=== PATIENT | female | born 1970 | race Caucasian/White ===

== ENCOUNTER 2019-01-30 12:51 | Emergency (ER) | payer SELFPAY ==
[2019-01-30 12:53] VITALS: BP 157/99; PULSE 77; RESP 20; TEMP 36.7; O2SAT 100; BMI 21.2
--- NOTE | 2019-01-30 13:24 | EKG12_ITS ---
Test Reason : CP Blood Pressure : / mmHG Vent. Rate : 082 BPM Atrial Rate : 082 BPM P-R Int : 102 ms QRS Dur : 086 ms QT Int : 370 ms P-R-T Axes : -09 067 073 degrees QTc Int : 432 ms Sinus rhythm with short OK Minimal voltage criteria for LVH, may be normal variant Borderline ECG Confirmed by TREVER DAWN ([id number]), online content editor GURDEEP TANNER ([id number]) on 02/02/2019 4:49:21 PM Referred By: MARLENY Confirmed By:TREVER DAWN
[2019-01-30] MEDS: Morphine 4 MG/ML Syringe IV (13:42)
[2019-01-30] MEDS: Ondansetron 4 MG/2 ML Vial IV (13:45)
--- NOTE | 2019-01-30 13:46 | ED.VIS.GEN ---
History of Present Illness Chief Complaint: Fall Limited by: Coma Onset: Yesterday Context: Sudden Onset Timing: Continuous Quality: Pain LUQ and left flank status post fall Location: Fell at home down a flight of steps Current Severity: Moderate Maximum Severity: Severe Worsened by: breathing, movement and palpation Relieved by: Nothing Associated Symptoms: Nausea Narrative: Patient is a middle-aged woman who is a smoker 1 pack/day presents because of left upper quadrant pain left flank pain status post fall. She fell last evening at 2200. She then developed steps. She did not have loss conscious. Shot administered. Denies neck pain. Denies paresthesia, anesthesia motors. She reports difficulty breathing because of pain. She has not urinated since fall. She is on no anticoagulant. She has no other complaints. Prior similar symptoms: No Recent Illness/Hospitalization: No - Past Medical History (1) No significant past medical history Status: Acute Past Medical History - Allergies and Home Meds Allergies/Adverse Reactions: Allergies No Known Allergies Allergy (Verified 01/30/19 12:53) Past Medical History: None Lives: Alone Smoking Status: Heavy Smoker (>10/day) Alcohol: Rare Review of Systems General: Denies: Chills, Fever, Sweats Eyes: Denies: Visual changes - bilaterally, Diplopia ENT: Denies: Rhinorrhea, Sore throat Cardiovascular: Denies: Chest pain, Palpitations Respiratory: Denies: Dyspnea, Cough, Dyspnea on exertion Gastrointestinal: Reports: Abdominal pain - left upper quadrant, Nausea. Denies: Vomiting, Diarrhea, Melena, Hematochezia Genitourinary: Denies: Dysuria, Hematuria, Frequency Musculoskeletal: Reports: Back pain. Denies: Myalgias, Arthralgias, Neck pain, Swelling, Extremity Pain Skin: Denies: Rash, Wounds Neurological: Denies: Headache, Weakness, Numbness Endocrine: Denies: Polyuria, Polydipsia Hematologic: Denies: Easy bruising, Easy bleeding Physical Exam Vital Signs/Narrative: Vital Signs Temp Pulse Resp BP Pulse Ox 01/30/19 12:53 98.1 F 77 20 H 157/99 H 100 General: Well nourished, Well developed, Acute Distress Head: Normocephalic, Atraumatic Eyes: Perrl, EOMI, Pale conjunctiva, Scleral icterus, - ENT: Moist mucous membranes, No rhinorrhea, TM's clear, - Neck: Supple, Nontender, No lymphadenopathy, No JVD, - Cardiovascular: Regular rate, Regular rhythm, No murmurs, Normal S1, Normal S2 Respiratory: CTA bilaterally - No, Decreased Air Movement, Chest tenderness - Left side Abdomen: Soft, Nondistended, No masses, Tender, Guarding, - - Significant tenderness left upper quadrant. Spleen is not enlarged by percussion. Significant tenderness left flank.. Negative for: Hepatomegaly, Splenomegaly, Mass, Pulsatile mass Rectal: Deferred - He has Back: Normal Inspection, CVA tenderness - left. Negative for: Nontender, Spinal tenderness Extremities: Nontender - ., No edema Skin: Normal color, No rash. Negative for: Cyanosis, Jaundice Neurological: Alert, Oriented x3, Cranial nerves II-XII grossly intact, Normal Strength, Normal Sensation, Normal DTR - No clonus or Babinski sign, - - GCS 15 Psychological: Normal affect, Normal Mood Diagnostic/Tx/Re-eval Impressions Abdomen/Pelvis CT 01/30/19 14:00 IMPRESSION: Contained splenic laceration with fluid in the abdomen and pelvis as described. This may represent blood. N.B. : The above information has been verbally conveyed by Vikash Goncalves to Zaid Cardoza MD, on 01/30/2019 14:36:43 (ET). Electronically Signed: Vikash Goncalves, at 14:37 EDT , Service support , 01/30/19 14:00 Abdomen/Pelvis WITH Contrast [CT] Stat Laboratory Results 01/30/19 01/30/19 13:35 13:35 WBC 7.4 RBC 4.24 Hgb 12.0 Hct 36.3 L MCV 85.6 MCH 28.3 MCHC 33.1 RDW 14.2 RDW Differential 43.8 Plt Count 330 MPV 8.2 Immature Gran % (Auto) 0.100 Neut % (Auto) 78.9 H Lymph % (Auto) 14.8 L Frio % (Auto) 5.4 Eos % (Auto) 0.5 Baso % (Auto) 0.3 Absolute Neuts (auto) 5.8 Absolute Lymphs (auto) 1.10 Total Counted Not Reportable Sodium 137 Potassium 4.5 Chloride 103 Carbon Dioxide 30.0 Anion Gap 4 L BUN 20 H Creatinine 0.73 Estim Creat Clear Calc 93.16 Est GFR (MDRD) Af Amer 108 Est GFR (MDRD) Non-Af 89 BUN/Creatinine Ratio 27.3 H Glucose 126 H Calcium 8.7 - Rhythm Strip Rhythm Strip: Sinus Rhythm Rate: 75 Ectopy: None - Medical Decision Making With severe left upper quadrant pain and left flank pain and evidence of discomfort IV was established and she was medicated with morphine and Zofran. CT of the abdomen and pelvis was obtained with IV contrast to evaluate for splenic injury and renal injury. Also this will evaluate for lower rib cage fracture. Baseline blood work was obtained including test. Patient was informed that she has a significant injury to her spleen and will need transfer to trauma center. She chose [facility]. Will add PT/INR PTT to her blood work. [place] is contacting the [facility] transfer line for trauma transfer - Critical Care Time Critical care time (excluding procedures): 30-74 minutes, Discussing w/Patient &/or Family/Sql Consultant, Discussing w/Consultants, Arranging Admission or Transfer ED Disposition - Plan for ED Patient: Disposition: [facility] Diagnosis: Splenic rupture
--- NOTE | 2019-01-30 13:50 | ED.DCSUM_ITS ---
History of Present Illness Chief Complaint: Fall Limited by: Coma Onset: Yesterday Context: Sudden Onset Timing: Continuous Quality: Pain LUQ and left flank status post fall Location: Fell at home down a flight of steps Current Severity: Moderate Maximum Severity: Severe Worsened by: breathing, movement and palpation Relieved by: Nothing Associated Symptoms: Nausea Narrative: Patient is a middle-aged woman who is a smoker 1 pack/day presents because of left upper quadrant pain left flank pain status post fall. She fell last evening at 2200. She then developed steps. She did not have loss conscious. Shot administered. Denies neck pain. Denies paresthesia, anesthesia motors. She reports difficulty breathing because of pain. She has not urinated since fall. She is on no anticoagulant. She has no other complaints. Prior similar symptoms: No Recent Illness/Hospitalization: No - Past Medical History (1) No significant past medical history Status: Acute Past Medical History - Allergies and Home Meds Allergies/Adverse Reactions: Allergies No Known Allergies Allergy (Verified 01/30/19 12:53) Past Medical History: None Lives: Alone Smoking Status: Heavy Smoker (>10/day) Alcohol: Rare Review of Systems General: Denies: Chills, Fever, Sweats Eyes: Denies: Visual changes - bilaterally, Diplopia ENT: Denies: Rhinorrhea, Sore throat Cardiovascular: Denies: Chest pain, Palpitations Respiratory: Denies: Dyspnea, Cough, Dyspnea on exertion Gastrointestinal: Reports: Abdominal pain - left upper quadrant, Nausea. Denies: Vomiting, Diarrhea, Melena, Hematochezia Genitourinary: Denies: Dysuria, Hematuria, Frequency Musculoskeletal: Reports: Back pain. Denies: Myalgias, Arthralgias, Neck pain, Swelling, Extremity Pain Skin: Denies: Rash, Wounds Neurological: Denies: Headache, Weakness, Numbness Endocrine: Denies: Polyuria, Polydipsia Hematologic: Denies: Easy bruising, Easy bleeding Physical Exam Vital Signs/Narrative: Vital Signs Temp Pulse Resp BP Pulse Ox 01/30/19 12:53 98.1 F 77 20 H 157/99 H 100 General: Well nourished, Well developed, Acute Distress Head: Normocephalic, Atraumatic Eyes: Perrl, EOMI, Pale conjunctiva, Scleral icterus, - ENT: Moist mucous membranes, No rhinorrhea, TM's clear, - Neck: Supple, Nontender, No lymphadenopathy, No JVD, - Cardiovascular: Regular rate, Regular rhythm, No murmurs, Normal S1, Normal S2 Respiratory: CTA bilaterally - No, Decreased Air Movement, Chest tenderness - Left side Abdomen: Soft, Nondistended, No masses, Tender, Guarding, - - Significant tenderness left upper quadrant. Spleen is not enlarged by percussion. Significant tenderness left flank.. Negative for: Hepatomegaly, Splenomegaly, Mass, Pulsatile mass Rectal: Deferred - He has Back: Normal Inspection, CVA tenderness - left. Negative for: Nontender, Spinal tenderness Extremities: Nontender - ., No edema Skin: Normal color, No rash. Negative for: Cyanosis, Jaundice Neurological: Alert, Oriented x3, Cranial nerves II-XII grossly intact, Normal Strength, Normal Sensation, Normal DTR - No clonus or Babinski sign, - - GCS 15 Psychological: Normal affect, Normal Mood Diagnostic/Tx/Re-eval Impressions Abdomen/Pelvis CT 01/30/19 14:00 IMPRESSION: Contained splenic laceration with fluid in the abdomen and pelvis as described. This may represent blood. N.B. : The above information has been verbally conveyed by Vikash Goncalves to Zaid Cardoza MD, on 01/30/2019 14:36:43 (ET). Electronically Signed: Vikash Goncalves, at 14:37 EDT , Service support , 01/30/19 14:00 Abdomen/Pelvis WITH Contrast [CT] Stat Laboratory Results 01/30/19 01/30/19 13:35 13:35 WBC 7.4 RBC 4.24 Hgb 12.0 Hct 36.3 L MCV 85.6 MCH 28.3 MCHC 33.1 RDW 14.2 RDW Differential 43.8 Plt Count 330 MPV 8.2 Immature Gran % (Auto) 0.100 Neut % (Auto) 78.9 H Lymph % (Auto) 14.8 L [place] % (Auto) 5.4 Eos % (Auto) 0.5 Baso % (Auto) 0.3 Absolute Neuts (auto) 5.8 Absolute Lymphs (auto) 1.10 Total Counted Not Reportable Sodium 137 Potassium 4.5 Chloride 103 Carbon Dioxide 30.0 Anion Gap 4 L BUN 20 H Creatinine 0.73 Estim Creat Clear Calc 93.16 Est GFR (MDRD) Af Amer 108 Est GFR (MDRD) Non-Af 89 BUN/Creatinine Ratio 27.3 H Glucose 126 H Calcium 8.7 - Rhythm Strip Rhythm Strip: Sinus Rhythm Rate: 75 Ectopy: None - Medical Decision Making With severe left upper quadrant pain and left flank pain and evidence of discomfort IV was established and she was medicated with morphine and Zofran. CT of the abdomen and pelvis was obtained with IV contrast to evaluate for splenic injury and renal injury. Also this will evaluate for lower rib cage fracture. Baseline blood work was obtained including test. Patient was informed that she has a significant injury to her spleen and will need transfer to trauma center. She chose [facility]. Will add PT/INR PTT to her blood work. [place] is contacting the [facility] transfer line for trauma transfer - Critical Care Time Critical care time (excluding procedures): 30-74 minutes, Discussing w/Patient &/or Family/Wholesale Loan Processor, Discussing w/Consultants, Arranging Admission or Transfer ED Disposition - Plan for ED Patient: Disposition: [facility] Diagnosis: Splenic rupture
[2019-01-30 13:52] LABS: Absolute Neutrophil Count 5.8 X10^3/uL (2.0-7.7); Basophil# 0.02 X10^3/uL; Basophil% 0.3 % (0-1); Eosinophil# 0.04 X10^3/uL; Eosinophils% 0.5 % (0-5); Hematocrit 36.3 % (37-47); Lymphocyte % 14.8 % (19-41); Mean Corp Hgb Conc 33.1 g/gl (32-36); Mean Corpuscular Hgb 28.3 pg (27.0-32.0); Mean Corpuscular Volume 85.6 fL (81-99); Mean Platelet Vol. 8.2 fl (6.2-12.0); Monocyte% 5.4 % (0-10); Neutrophil # 5.84 X10^3/uL (2.7-7.7); Neutrophil % 78.9 % (47-70); Platelet Count 330 K/mm3 (150-450); RBC Distribution Width CV 14.2 % (11.6-14.6); RBC Distribution Width SD 43.8 fl (35.1-43.9); Red Blood Count 4.24 M/mm3 (4.2-5.4); White Blood Count 7.4 K/mm3 (4.4-11.0)
[2019-01-30 13:53] LABS: POSITIVE COUNT NO; POSITIVE DIFFERENTIAL NO; POSITIVE MORPHOLOGY NO
--- NOTE | 2019-01-30 14:00 | CT_ITS ---
STUDY: CT ABDOMEN AND PELVIS WITH CONTRAST REASON FOR EXAM: Female, 48 years old. Left flank pain following a fall. RADIATION DOSAGE (If Supplied By Facility): CTDIvol = ( 8.47 ) mGy, DLP = ( 751.01 ) mGycm TECHNIQUE: Transaxial images were obtained from the dome of the diaphragm to the symphysis pubis without oral contrast. 100ML IV Isovue 250 was administered. Sagittal and coronal images were reconstructed. Individualized dose optimization techniques were used for this CT. COMPARISON: None. FINDINGS: Mild left basilar atelectasis. The visualized portions of the heart are within normal limits. Normal liver. Normal gallbladder and extrahepatic biliary system. There is inhomogeneous hypodensity in the central portion of the spleen suggestive of a laceration. There is evidence of a fluid in the perisplenic space as well as in the perihepatic space as well as in the hepatorenal space. There is also evidence of fluid within the pelvis and the paracolic gutters worse on the left side. Normal pancreas. Normal bilateral adrenal glands. 1.6 mm cyst in the midportion of the right kidney. Normal left kidney. There is a small hiatal hernia. Normal small intestine. Normal colon. The appendix is visualized and appears normal. Normal abdominal aorta. Normal inferior vena cava. Normal retroperitoneum. Normal urinary bladder. Fluid in the pelvis. Normal abdominal wall. There are degenerative changes of the visualized lumbar spine. CT/Abdomen/Pelvis WITH Contrast IMPRESSION: Contained splenic laceration with fluid in the abdomen and pelvis as described. This may represent blood. N.B. : The above information has been verbally conveyed by Vikash Goncalves to Zaid Cardoza MD, on 01/30/2019 14:36:43 (ET). Electronically Signed: Vikash Goncalves, at 14:37 EDT , Service support ,
[2019-01-30 14:02] LABS: Anion Gap 4 (5-15); BUN 20 mg/dL (7-18); BUN/Creat Ratio 27.3 RATIO (10-20); Calcium,Total 8.7 mg/dL (8.5-10.1); Chloride 103 mmol/L (98-107); Creatinine, Serum 0.73 mg/dL (0.55-1.02); EST Glomerular Filtration Rate 89 mL/min (>60); Est Glom Filt Rate - Afr Amer 108 mL/min (>60); Estimated Creatinine Clearance 93.16 ml/min; Glucose 126 mg/dL (74-106); Potassium 4.5 mmol/L (3.5-5.1); Sodium Level 137 mmol/L (136-145)
[2019-01-30 14:54] VITALS: BP 118/87; PULSE 87; RESP 16; O2SAT 100
--- NOTE | 2019-01-30 14:59 | ED.RN ---
AWARE PT UNABLE TO PRODUCE A URINE SAMPLE. NO NEW ORDERS GIVEN.
[2019-01-30 15:01] VITALS: BP 118/87; PULSE 87; RESP 16; O2SAT 100
[2019-01-30 15:23] LABS: Pregnancy, Serum, hCG Quali. NEGATIVE Negative (0-9 Nonpreg)
== END 2019-01-30 15:51 | disposition short-term general hospital (02) ==
PROVIDERS: Emergency Provider Emergency Medicine
DX: S36.039A Unspecified laceration of spleen, initial encounter (principal); F17.210 Nicotine dependence, cigarettes, uncomplicated; W10.9XXA Fall (on) (from) unspecified stairs and steps, initial encounter; Y93.89 Activity, other specified; Y92.89 Other specified places as the place of occurrence of the external cause; Y99.8 Other external cause status
CPT/HCPCS: 74177; 80048; 84703; 85025; 93005; 96374; 96375; 99285; J7030; Q9967; A4216; J2405

== ENCOUNTER 2019-03-16 15:37 | Emergency (ER) | payer MEDICAID, SELFPAY ==
[2019-03-16 15:38] VITALS: BP 157/84; PULSE 112; RESP 18; TEMP 36.7; O2SAT 98; BMI 19.5
--- NOTE | 2019-03-16 15:57 | ED.VISSUMM ---
- ER Visit Summary Date of Service: 03/16/19 Chief Complaint: Lightheaded History of Present Illness: The patient is a 48 F with no primary care physician. She reports that she is lightheaded and this began 2 days ago. Is increased with standing. She has not passed out. She denies any vertigo. No double vision or slurred speech. She reports that she has a fullness in her hears bilaterally and muffled hearing on the right. She also has ringing in her right ear. She denies any pain. Patient reports that she had a fever to 103 degrees 2 days ago. She had a subjective fever last night. She has nasal congestion. She denies a cough. She is been nausea and vomited twice. No blood or emesis. No diarrhea. Her last bout was 3 days ago. Typically she goes every 2 days. She had dysuria, but no frequency or hematuria. States where she has a headache is 10 out of 10 severity. However, she has had similar headaches in the past with sinus infections. Patient reports that she took an antibiotic that her boyfriend had from the dentist for 4 days. She stopped this 3 days ago because she looked it up and found that this does not cover ear infections. States that approximately a week ago she irrigated her right ear with hydrogen peroxide mixed with water with a bulb syringe. Physical Examination: Vitals: 98.1, 157/84, 112, 18, 98% on room air which is not hypoxic. General: Well-nourished and well-developed. Head: Normocephalic atraumatic. HEENT: No pharyngeal erythema or tonsillar exudate. Moist mucous membranes. She has serous effusions bilaterally. There is no evidence of otitis media. External auditory canals are normal. Right TM inferiorly shows an approximately 5 mm contusion without perforation. Neck: Supple, no lymphadenopathy. No JVD. Nontender. Cardiovascular: Regular rate and rhythm. No murmurs. Respiratory: No respiratory distress. Clear to auscultation bilaterally. Abdominal: Soft, nontender, nondistended, normal bowel sounds. No guarding, rebound, or peritoneal signs. Back: Nontender. Extremities: Nontender, no edema. Skin: Normal color, no rash. Neurologic: Alert and oriented ?3. Cranial nerves II through XII are intact. Normal strength and sensation. Psych: Normal affect. Test Results: CBC shows a hemoglobin of 15.47 neutrophils 73. Chem-7 is normal. UA is contaminated, but does not appear infected. Emergency Department Course and Treatment: Patient had an IV placed. She was given 2 L normal saline. She was given Toradol and Zofran IV. She is resting comfortably. She had positive orthostatic vital signs. Patient feels much improved after fluids and would like to go home. Treatment Plan: Patient will be discharged with Zofran. Instructed to push fluids. Follow-up with Dr. Muro as needed. I also discussed with her the contusion to her left tympanic membrane. At this time I do not feel that any further management needs to be undertaken for this. However she is instructed follow-up Dr. Matt Maynard if her hearing is not improving. Return to the emergency department for any worsening symptoms. Disposition: To home in improved and stable condition. Impression: 1. Orthostatic hypotension. 2. Contusion right tympanic membrane. This note was generated with [id number] dictation software. It may contain incorrect words, spelling, and punctuation that were not noted in review of the chart prior to signing ED Disposition - Plan for ED Patient: Instructions: ED Hypotension Orthostatic Prescriptions: Ondansetron [Zofran Odt] 4 mg PO Q8H PRN PRN #10 tablet PRN Reason: Nausea Referrals: Bienvenido Muro MD [STAFF PHYSICIAN] - 1 Week if not improving Matt Hector MD [STAFF PHYSICIAN] - 1 Week if not improving
[2019-03-16 16:03] VITALS: BP 128/92; BP 130/83; BP 99/71; PULSE 100; PULSE 89; PULSE 94
[2019-03-16] MEDS: Ondansetron 4 MG/2 ML Vial IV (16:20)
[2019-03-16] MEDS: 0.9% Normal Saline 1,000 ML 1000 ML IV ×2 (16:20)
[2019-03-16] MEDS: Ketorolac 30 MG/ML Syringe IV (16:20)
[2019-03-16 16:34] LABS: Red Blood Cells-Urine 0 SEEN /hpf (0-5)
[2019-03-16 16:45] LABS: Absolute Lymphocyte Count 1.57 X10^3/ul (0.83-4.51); Absolute Neutrophil Count 4.9 X10^3/uL (2.0-7.7); Basophil# 0.03 X10^3/uL; Basophil% 0.4 % (0-1); Eosinophil# 0.05 X10^3/uL; Eosinophils% 0.7 % (0-5); Hematocrit 44.3 % (37-47); Hemoglobin 15.4 g/dl (12.0-15.0); Lymphocyte # 1.57 X10^3/ul (4.0); Lymphocyte % 23.3 % (19-41); Mean Corp Hgb Conc 34.8 g/gl (32-36); Mean Corpuscular Hgb 28.5 pg (27.0-32.0); Mean Corpuscular Volume 81.9 fL (81-99); Mean Platelet Vol. 8.9 fl (6.2-12.0); Monocyte# 0.16 X10^3/uL; Monocyte% 2.4 % (0-10); Neutrophil # 4.91 X10^3/uL (2.7-7.7); Neutrophil % 73.1 % (47-70); POSITIVE COUNT NO; POSITIVE DIFFERENTIAL NO; POSITIVE MORPHOLOGY NO; Platelet Count 252 K/mm3 (150-450); RBC Distribution Width CV 14.2 % (11.6-14.6); RBC Distribution Width SD 42.4 fl (35.1-43.9); Red Blood Count 5.41 M/mm3 (4.2-5.4); White Blood Count 6.7 K/mm3 (4.4-11.0)
[2019-03-16 16:54] LABS: Anion Gap 10 (5-15); BUN 15 mg/dL (7-18); BUN/Creat Ratio 20.3 RATIO (10-20); Chloride 102 mmol/L (98-107); Creatinine, Serum 0.74 mg/dL (0.55-1.02); EST Glomerular Filtration Rate 89 mL/min (>60); Est Glom Filt Rate - Afr Amer 107 mL/min (>60); Estimated Creatinine Clearance 84.95 ml/min; Glucose 82 mg/dL (74-106); Potassium 3.6 mmol/L (3.5-5.1); Sodium Level 136 mmol/L (136-145)
[2019-03-16 17:02] LABS: Color, Urine Amber (Yellow); Glucose, Dipstick Normal (Normal); Ketone-Dipstick 15 mg/dl (Negative); Leukocyte Esterase-Dipstick 100 /ul (Negative); Nitrite-Dipstick Negative (Negative); Occult Blood-Urine 25 /ul (Negative); Protein-Dipstick 100 mg/dl (Negative); Urine Clarity Cloudy (Clear); Urine Urobilinogen 8 mg/dl (Normal); Urine pH 6.5 (5.0 - 8.0)
[2019-03-16 17:03] LABS: Urine Bilirubin Dipstick 6 mg/dL (Negative)
[2019-03-16 17:05] LABS: White Blood Cells 10-25 SEEN /hpf (0-5)
[2019-03-16 17:06] LABS: Bacteria 1+ /hpf (None Seen); Squamous Epithelial Cells - UA 25-50 SEEN /hpf (5-10)
[2019-03-16 17:07] LABS: Coarse Granular Cast 10-25 SEEN /lpf (0-5 /lpf); Mucous, Urine 2+ /hpf (<or=2+)
[2019-03-16 18:26] VITALS: BP 129/75; BP 129/85; PULSE 82; RESP 16; O2SAT 99
[2019-03-16] MEDS: Ondansetron ODT 4 MG Tablet PO (18:42)
== END 2019-03-16 18:30 | disposition home or self-care (01) ==
LOC: ED 17:29
PROVIDERS: Emergency Provider Emergency Medicine
DX: I95.1 Orthostatic hypotension (principal); S00.431A Contusion of right ear, initial encounter; R50.9 Fever, unspecified; R09.81 Nasal congestion; R30.0 Dysuria; R51 Headache; X58.XXXA Exposure to other specified factors, initial encounter; Y93.9 Activity, unspecified; Y92.9 Unspecified place or not applicable; F17.200 Nicotine dependence, unspecified, uncomplicated
CPT/HCPCS: 80048; 81001; 85025; 96361; 96374; 96375; 99284; J7030; J2405